=== PATIENT | male | born 1945 | race Caucasian/White ===

== ENCOUNTER 2017-01-15 12:24 | Outpatient (CLI) | payer MEDICARE, BC ==
[2017-01-15 13:57] LABS: Anion Gap 11 mmol/L (10-20); BUN (Urea Nitrogen) 16 mg/dL (8.4-25.7); Calc. Creatinine Clearance 0 mL/min (70-130); Calcium 9.9 mg/dL (7.8-10.44); Carbon Dioxide 30 mmol/L (23-31); Chloride 100 mmol/L (98-107); Estimated GFR-MDRD 52
--- NOTE | 2017-01-15 15:30 | EKG ---
Test Reason : Blood Pressure : / mmHG Vent. Rate : 065 BPM Atrial Rate : 065 BPM P-R Int : 196 ms QRS Dur : 086 ms QT Int : 408 ms P-R-T Axes : 012 -28 -12 degrees QTc Int : 424 ms Normal sinus rhythm Minimal voltage criteria for LVH, may be normal variant Nonspecific ST-T changes When compared with ECG of 28-NOV-2013 13:01, No significant change was found Confirmed by DR. Elaine CHILDERS ([id number]) on 01/15/2017 3:30:03 PM Referred By: SEBASTIÁN Confirmed By:DR. Elaine CHILDERS
== END 2017-01-15 12:25 | disposition home or self-care (01) ==
LOC: LABBT 12:24
PROVIDERS: ATTEND Surgery
DX: Z01.818 Encounter for other preprocedural examination (principal); N60.82 Other benign mammary dysplasias of left breast
CPT/HCPCS: 80048; 93005; 93010

== ENCOUNTER 2017-01-21 06:00 | Day surgery (SDC) | payer MEDICARE, BC ==
[2017-01-15 12:39] VITALS: BMI 26.9
[2017-01-21] MEDS ORDERED: CEFAZOLIN/Water 2 GM/20 ML SYRINGE ONE (06:23)
[2017-01-21] MEDS ORDERED: Fentanyl 100 MCG/2 ML VIAL ONE (06:35)
[2017-01-21] MEDS ORDERED: Bupivacaine PF 0.5% 30 ML VIAL ONE (06:45)
[2017-01-21] MEDS ORDERED: Lidocaine 1% w/Epinephrine 1:200K 30 ML VIAL ONE (07:29)
[2017-01-21] MEDS ORDERED: Lidocaine 1% PF 5 ML VIAL ONE (07:35)
[2017-01-21] MEDS ORDERED: Glycopyrrolate 0.2 MG/ML 5 ML SYRINGE ONE (07:35)
[2017-01-21] MEDS ORDERED: Dexamethasone 20 MG/5 ML VIAL ONE (07:35)
[2017-01-21] MEDS ORDERED: diphenhydrAMINE 50 MG/ML VIAL ONE (07:35)
[2017-01-21] MEDS ORDERED: Ondansetron HCl/PF 4 MG/2 ML Vial ONE (07:35)
[2017-01-21] MEDS ORDERED: Ketorolac Tromethamine 30 MG/ML VIAL ONE (07:35)
[2017-01-21] MEDS ORDERED: Metoclopramide HCl 10 MG/2 ML VIAL ONE (07:35)
[2017-01-21] MEDS ORDERED: Propofol 200 MG/20 ML VIAL ONE (07:35)
--- NOTE | 2017-01-21 08:19 | OP ---
DATE OF PROCEDURE: 01/21/2017 PREOPERATIVE DIAGNOSIS: Skin cyst, posterior neck, 3 cm. POSTOPERATIVE DIAGNOSIS: Skin cyst, posterior neck, 3 cm. PROCEDURE: Excision skin cyst, posterior neck, 3 cm. SURGEON: Dr. Leonardo. ANESTHESIA: General. ESTIMATED BLOOD LOSS: Minimal. COMPLICATIONS: None. SPECIMEN: Skin cyst. TECHNIQUE: The patient was taken to the operating room and placed supine on table. After general a nesthetic was obtained, the patient was placed in prone position. His posterior neck and back and p osterior scalp were shaved, prepped, and draped in a sterile fashion. An elliptical incision was us ed to ellipse out the skin over the large cyst of the posterior center of neck. This is a 3 cm in d iameter incision. Cautery was taken down into the subcutaneous tissue and the cyst is removed all t he way down to the subcutaneous tissue. The cyst is sent to Pathology for final diagnosis. The wou nd is irrigated. Local anesthetic was applied. The wound was closed using 3-0 Vicryl, 4-0 Monocryl , and Dermabond. The patient was en route to recovery in stable condition. All instrument counts, needle counts, and lap counts were correct.
== END 2017-01-21 10:25 | disposition home or self-care (01) ==
LOC: SDC 06:00
PROVIDERS: ATTEND Surgery
PROC: 0HB4XZZ Excision of Neck Skin, External Approach (ICD-10-PCS; principal; 2017-01-21)
DX: L72.0 Epidermal cyst (principal); E78.5 Hyperlipidemia, unspecified; I10 Essential (primary) hypertension; F17.220 Nicotine dependence, chewing tobacco, uncomplicated; M19.90 Unspecified osteoarthritis, unspecified site; K21.9 Gastro-esophageal reflux disease without esophagitis; H91.93 Unspecified hearing loss, bilateral; Z79.899 Other long term (current) drug therapy; Z98.890 Other specified postprocedural states; Z82.49 Family history of ischemic heart disease and other diseases of the circulatory system
CPT/HCPCS: 88304; J1100; J1200; J1885; J2001; J2405; J2704; J2765; J3010; S0020

== ENCOUNTER 2019-03-28 14:02 | Outpatient (CLI) | payer MEDICARE, BC ==
[2019-03-28] MEDS ORDERED: Magnevist 469MG/ML 20 ML VIAL ONE (16:38)
--- NOTE | 2019-03-29 10:57 | MRI ---
MRI PELVIS (PROSTATE) WITH AND WITHOUT IV CONTRAST: HISTORY: Prostate cancer. TECHNIQUE: Multiplanar, multisequential MRI of the pelvis was performed with and without IV contrast using the p rostate protocol. Review was also performed on an independent 3D work station. FINDINGS: The prostate measures 4.9 x 4.9 x 4.4 cm with a volume of 55 mL. There is a focal area of high T1 signal at the anterior aspect of the left peripheral zone, consisten t with hemorrhage. No focal area of restricted diffusion is seen in the peripheral zone to suggest a malignant process. No lentiform area of abnormally decreased T2 signal is noted in the transitional zone to suggest a ma lignant process. No focal arterial enhancing mass is seen. The prostatic capsule is intact. The seminal vesicle is int act. No pelvic lymphadenopathy is seen. The pelvic sidewall is normal. No abnormal areas of signal re placement are seen on the T1 weighted sequences to suggest osseous metastatic disease. IMPRESSION: PI-RADS 2 - Low (clinically significant prostate cancer is unlikely to be present). This study was interpreted in consultation with Dr. Evan Mabry, who concurs. POS: BHARGAV
== END 2019-03-28 14:03 | disposition home or self-care (01) ==
LOC: TBSIIMAG 14:02
PROVIDERS: ATTEND Urology
DX: C61 Malignant neoplasm of prostate (principal)
CPT/HCPCS: 72197; 82565; A9579

== ENCOUNTER 2019-04-26 09:36 | Outpatient (CLI) | payer MEDICARE, BC ==
--- NOTE | 2019-04-26 10:43 | CT ---
CT Abdomen Pelvis W WO con HISTORY: Malignant neoplasm of prostate COMPARISON: None. FINDINGS: The lung bases are clear. No calcified gallstones are noted. There are calcified granulomas in the li diana and spleen. No hepatic mass or abnormal biliary ductal dilatation is identified. The pancreas and adrenal glands are normal. No calculus is seen in the kidneys, ureters or the urinary bladder. No hydroureteronephrosis is seen on either side. The prostate is enlarged. Postcontrast images demonstrate no evidence of enhancing renal mass. Few tiny low-density lesions are likely cysts. There is normal contrast excretion into th e ureters and urinary bladder. No free air, free fluid or lymphadenopathy seen in the abdomen or pelvis. There are vascular calcific ations without evidence of aneurysmal dilatation of the abdominal aorta. There is mild colonic diverticulosis. There are degenerative changes in the spine. 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 No sclerotic or osteoblastic lesions are seen. IMPRESSION: No evidence of metastatic disease.
[2019-04-26] MEDS ORDERED: Iopamidol-370 76% 500 ML 1 ML ONE (12:53)
== END 2019-04-26 09:37 | disposition home or self-care (01) ==
LOC: BICCT 09:36
PROVIDERS: ATTEND Urology
DX: C61 Malignant neoplasm of prostate (principal)
CPT/HCPCS: 74178; Q9967

== ENCOUNTER 2020-04-04 12:44 | Inpatient (IN) | payer MEDICARE, BC ==
[2020-04-04 13:21] LABS: #Lymphocytes 0.6 thou/uL (1.20-3.40); #Monocytes 0.6 thou/uL (0.11-0.59); #Neutrophils 11.1 thou/uL (1.40-6.50); %Basophils 0.2 % (0.0-1.0); %Eosinophils 0.2 % (0.0-10.0); %Lymphocytes 4.5 % (21.0-51.0); %Monocytes 4.7 % (0.0-10.0); %Neutrophils 90.4 % (42.0-75.0); Hemoglobin 15.8 g/dL (14.0-18.0); Mean Corpuscular HGB CONC 34.5 g/dL (32.0-36.0); Mean Corpuscular Hemoglobin 30.2 pg (27.0-31.0); Mean Corpuscular Volume 87.5 fL (78.0-98.0); Mean Platelet Volume 6.8 fL (7.4-10.4); Platelet Count 314 thou/uL (130-400); RBC Distribution Width 12.8 % (11.5-14.5); Red Blood Cell (RBC) Count 5.24 mill/uL (4.70-6.10); White Blood Cell (WBC) Count 12.2 thou/uL (4.8-10.8)
[2020-04-04 13:44] LABS: ALT (SGPT) 69 U/L (8-55); AST (SGOT) 60 U/L (5-34); Albumin 3.4 g/dL (3.4-4.8); Alkaline Phosphatase 127 U/L (40-110); Anion Gap 14 mmol/L (10-20); BUN (Urea Nitrogen) 30 mg/dL (8.4-25.7); Bilirubin, Total 0.6 mg/dL (0.2-1.2); Calc. Creatinine Clearance 0 mL/min (70-130); Calcium 8.5 mg/dL (7.8-10.44); Carbon Dioxide 30 mmol/L (23-31); Chloride 97 mmol/L (98-107); Globulin 3.5 g/dL (2.4-3.5); Glucose 122 mg/dL (83-110); Protein, Total 6.9 g/dL (5.8-8.1); Sodium 138 mmol/L (136-145)
[2020-04-04] MEDS ORDERED: Dexamethasone 4 mg/ml Vial ONE (13:55)
[2020-04-04] MEDS ORDERED: Iopamidol-370 76% 500 ML 1 ML ONE (14:23)
[2020-04-04] MEDS ORDERED: Potassium Chloride 20 MEQ TAB ONE (14:34)
[2020-04-04] MEDS ORDERED: Senokot S 8.6-50 MG TAB PO PRN (16:32)
[2020-04-04] MEDS ORDERED: Albuterol 200 PUFF (6.7GM INHALER) INH PRN (16:44)
[2020-04-04 19:35] VITALS: BMI 27.2
[2020-04-04] MEDS: Rosuvastatin 10 MG TAB PO SCH (21:51)
[2020-04-04] MEDS: Enoxaparin Sodium 40 MG/0.4 ML SYRINGE SC SCH (21:51)
[2020-04-05 06:11] LABS: #Lymphocytes 0.5 thou/uL (1.20-3.40); #Monocytes 0.4 thou/uL (0.11-0.59); #Neutrophils 9.4 thou/uL (1.40-6.50); %Eosinophils 0.1 % (0.0-10.0); %Lymphocytes 5.1 % (21.0-51.0); %Monocytes 3.7 % (0.0-10.0); %Neutrophils 91.2 % (42.0-75.0); Hemoglobin 14.8 g/dL (14.0-18.0); Mean Corpuscular HGB CONC 32.9 g/dL (32.0-36.0); Mean Corpuscular Hemoglobin 28.9 pg (27.0-31.0); Mean Corpuscular Volume 87.9 fL (78.0-98.0); Mean Platelet Volume 6.9 fL (7.4-10.4); Platelet Count 325 thou/uL (130-400); RBC Distribution Width 12.7 % (11.5-14.5); Red Blood Cell (RBC) Count 5.11 mill/uL (4.70-6.10); White Blood Cell (WBC) Count 10.3 thou/uL (4.8-10.8)
[2020-04-05 06:38] LABS: ALT (SGPT) 55 U/L (8-55); AST (SGOT) 44 U/L (5-34); Albumin 3.1 g/dL (3.4-4.8); Alkaline Phosphatase 116 U/L (40-110); Anion Gap 17 mmol/L (10-20); BUN (Urea Nitrogen) 27 mg/dL (8.4-25.7); Bilirubin, Total 0.7 mg/dL (0.2-1.2); Calc. Creatinine Clearance 94 mL/min (70-130); Calcium 8.2 mg/dL (7.8-10.44); Carbon Dioxide 28 mmol/L (23-31); Chloride 99 mmol/L (98-107); Globulin 3.5 g/dL (2.4-3.5); Glucose 104 mg/dL (83-110); Potassium 3.5 mmol/L (3.5-5.1); Protein, Total 6.6 g/dL (5.8-8.1); Sodium 140 mmol/L (136-145)
[2020-04-05] MEDS: Dexamethasone 4 MG TAB PO SCH (08:12)
[2020-04-05] MEDS: Enoxaparin Sodium 40 MG/0.4 ML SYRINGE SC SCH ×2 (08:13→23:14)
[2020-04-05] MEDS: Cholecalciferol 1,000 UNITS (25 MCG) TAB PO SCH (08:13)
[2020-04-05] MEDS: Ascorbic Acid 500 mg Chewable Tablet PO SCH (08:13)
[2020-04-05] MEDS: Zinc Sulfate 220 MG CAP PO SCH (08:13)
[2020-04-05] MEDS ORDERED: ENALAPRIL PO SCH (09:00)
[2020-04-05] MEDS ORDERED: HYDROCHLOROTHIAZIDE PO SCH (09:00)
[2020-04-05] MEDS ORDERED: [UNRECOGNIZED DRUG - OTHER] PO SCH (09:00)
[2020-04-05] MEDS: Nicotine 14 MG PATCH TD SCH (09:04)
[2020-04-05] MEDS: Hydrochlorothiazide 25 MG TAB PO SCH (09:04)
[2020-04-05] MEDS: Lisinopril 5 MG TAB PO SCH (09:04)
[2020-04-05] MEDS ORDERED: REMDESIVIR (EUA) 200 MG in Sodium Chloride 0.9% 250 ML 210 ML IV SCH (17:00)
[2020-04-05] MEDS: hydrALAZINE 20 MG/ML VIAL SLOW IVP PRN (18:11)
[2020-04-05] MEDS: Rosuvastatin 10 MG TAB PO SCH (23:14)
[2020-04-06 09:13] LABS: ALT (SGPT) 57 U/L (8-55); AST (SGOT) 53 U/L (5-34); Albumin 3.3 g/dL (3.4-4.8); Alkaline Phosphatase 144 U/L (40-110); Anion Gap 18 mmol/L (10-20); BUN (Urea Nitrogen) 25 mg/dL (8.4-25.7); Bilirubin, Direct 0.6 mg/dL (0.1-0.3); Calc. Creatinine Clearance 98 mL/min (70-130); Calcium 8.9 mg/dL (7.8-10.44); Carbon Dioxide 29 mmol/L (23-31); Chloride 98 mmol/L (98-107); Glucose 98 mg/dL (83-110); Potassium 3.8 mmol/L (3.5-5.1); Protein, Total 7.4 g/dL (5.8-8.1); Sodium 141 mmol/L (136-145)
[2020-04-06] MEDS: Fluticasone Propionate Nasal Spray 16 gm Bottle NASAL SCH (10:06)
[2020-04-06] MEDS: Enoxaparin Sodium 40 MG/0.4 ML SYRINGE SC SCH ×2 (10:07→21:34)
[2020-04-06] MEDS: Zinc Sulfate 220 MG CAP PO SCH (10:07)
[2020-04-06] MEDS: Hydrochlorothiazide 25 MG TAB PO SCH (10:07)
[2020-04-06] MEDS: Dexamethasone 4 MG TAB PO SCH (10:07)
[2020-04-06] MEDS: Lisinopril 5 MG TAB PO SCH (10:08)
[2020-04-06] MEDS: Cholecalciferol 1,000 UNITS (25 MCG) TAB PO SCH (10:08)
[2020-04-06] MEDS: Nicotine 14 MG PATCH TD SCH (10:08)
[2020-04-06] MEDS: Ascorbic Acid 500 mg Chewable Tablet PO SCH (10:08)
[2020-04-06] MEDS ORDERED: Sodium Chloride 0.65% Nasal 44 ML BOT EA NARE PRN (10:59)
[2020-04-06] MEDS: REMDESIVIR (EUA) 100 MG in Sodium Chloride 0.9% 250 ML 230 ML IV SCH (16:42)
[2020-04-06] MEDS: Rosuvastatin 10 MG TAB PO SCH (21:34)
[2020-04-06] MEDS: Melatonin 3 MG TAB PO PRN (21:34)
[2020-04-07] MEDS: hydrALAZINE 20 MG/ML VIAL SLOW IVP PRN (06:52)
[2020-04-07] MEDS: Hydrochlorothiazide 25 MG TAB PO SCH (07:59)
[2020-04-07] MEDS: Dexamethasone 4 MG TAB PO SCH (07:59)
[2020-04-07] MEDS: Ascorbic Acid 500 mg Chewable Tablet PO SCH (08:00)
[2020-04-07] MEDS: Cholecalciferol 1,000 UNITS (25 MCG) TAB PO SCH (08:00)
[2020-04-07] MEDS: Lisinopril 5 MG TAB PO SCH (08:00)
[2020-04-07] MEDS: Zinc Sulfate 220 MG CAP PO SCH (08:00)
[2020-04-07] MEDS: Nicotine 14 MG PATCH TD SCH (08:00)
[2020-04-07] MEDS: Fluticasone Propionate Nasal Spray 16 gm Bottle NASAL SCH (08:48)
[2020-04-07] MEDS: Enoxaparin Sodium 40 MG/0.4 ML SYRINGE SC SCH ×2 (08:48→20:24)
[2020-04-07] MEDS: REMDESIVIR (EUA) 100 MG in Sodium Chloride 0.9% 250 ML 230 ML IV SCH (18:01)
[2020-04-07 19:46] LABS: Troponin I 0.015 ng/mL (< 0.028)
[2020-04-07] MEDS: Melatonin 3 MG TAB PO PRN (20:24)
[2020-04-07] MEDS: Acetaminophen 325 MG TAB PO PRN (20:24)
[2020-04-07] MEDS: Rosuvastatin 10 MG TAB PO SCH (20:24)
[2020-04-07] MEDS: Cepastat Lozenges 1 LOZ PO PRN (23:42)
[2020-04-08] MEDS: Cepastat Lozenges 1 LOZ PO PRN ×2 (05:15→20:32)
[2020-04-08 06:58] LABS: ALT (SGPT) 51 U/L (8-55); AST (SGOT) 33 U/L (5-34); Albumin 3.1 g/dL (3.4-4.8); Alkaline Phosphatase 134 U/L (40-110); Anion Gap 17 mmol/L (10-20); BUN (Urea Nitrogen) 33 mg/dL (8.4-25.7); Bilirubin, Direct 0.6 mg/dL (0.1-0.3); CRP (Inflammatory) 12.62 mg/dL (= or < 0.5); Calc. Creatinine Clearance 97 mL/min (70-130); Calcium 9.1 mg/dL (7.8-10.44); Carbon Dioxide 28 mmol/L (23-31); Chloride 99 mmol/L (98-107); Glucose 92 mg/dL (83-110); Potassium 4.2 mmol/L (3.5-5.1); Protein, Total 6.8 g/dL (5.8-8.1); Sodium 140 mmol/L (136-145)
[2020-04-08] MEDS: Hydrochlorothiazide 25 MG TAB PO SCH (07:59)
[2020-04-08] MEDS: Enoxaparin Sodium 40 MG/0.4 ML SYRINGE SC SCH ×2 (07:59→20:34)
[2020-04-08] MEDS: Zinc Sulfate 220 MG CAP PO SCH (08:00)
[2020-04-08] MEDS: Ascorbic Acid 500 mg Chewable Tablet PO SCH (08:00)
[2020-04-08] MEDS: Dexamethasone 4 MG TAB PO SCH (08:00)
[2020-04-08] MEDS: Cholecalciferol 1,000 UNITS (25 MCG) TAB PO SCH (08:00)
[2020-04-08] MEDS: Lisinopril 5 MG TAB PO SCH (08:00)
[2020-04-08] MEDS: Nicotine 14 MG PATCH TD SCH (08:01)
[2020-04-08] MEDS: Fluticasone Propionate Nasal Spray 16 gm Bottle NASAL SCH (08:01)
[2020-04-08] MEDS: REMDESIVIR (EUA) 100 MG in Sodium Chloride 0.9% 250 ML 230 ML IV SCH (16:52)
[2020-04-08] MEDS: Melatonin 3 MG TAB PO PRN (20:32)
[2020-04-08] MEDS: Rosuvastatin 10 MG TAB PO SCH (20:32)
[2020-04-08] MEDS: Acetaminophen 325 MG TAB PO PRN (20:32)
[2020-04-09] MEDS: Cholecalciferol 1,000 UNITS (25 MCG) TAB PO SCH (07:43)
[2020-04-09] MEDS: Dexamethasone 4 MG TAB PO SCH (07:43)
[2020-04-09] MEDS: Enoxaparin Sodium 40 MG/0.4 ML SYRINGE SC SCH ×2 (07:43→20:35)
[2020-04-09] MEDS: Hydrochlorothiazide 25 MG TAB PO SCH (07:43)
[2020-04-09] MEDS: Lisinopril 5 MG TAB PO SCH (07:43)
[2020-04-09] MEDS: Ascorbic Acid 500 mg Chewable Tablet PO SCH (07:43)
[2020-04-09] MEDS: Zinc Sulfate 220 MG CAP PO SCH (07:43)
[2020-04-09] MEDS: Fluticasone Propionate Nasal Spray 16 gm Bottle NASAL SCH (07:47)
[2020-04-09] MEDS: Nicotine 14 MG PATCH TD SCH (07:47)
[2020-04-09] MEDS: REMDESIVIR (EUA) 100 MG in Sodium Chloride 0.9% 250 ML 230 ML IV SCH (17:29)
[2020-04-09] MEDS: Acetaminophen 325 MG TAB PO PRN (17:29)
[2020-04-09] MEDS: Rosuvastatin 10 MG TAB PO SCH (20:34)
[2020-04-09] MEDS: Melatonin 3 MG TAB PO PRN (20:34)
[2020-04-10 07:06] LABS: ALT (SGPT) 38 U/L (8-55); AST (SGOT) 25 U/L (5-34); Albumin 2.7 g/dL (3.4-4.8); Alkaline Phosphatase 106 U/L (40-110); Anion Gap 16 mmol/L (10-20); BUN (Urea Nitrogen) 35 mg/dL (8.4-25.7); Bilirubin, Direct 0.3 mg/dL (0.1-0.3); Bilirubin, Total 0.7 mg/dL (0.2-1.2); CRP (Inflammatory) 8.23 mg/dL (= or < 0.5); Calc. Creatinine Clearance 107 mL/min (70-130); Calcium 8.5 mg/dL (7.8-10.44); Carbon Dioxide 25 mmol/L (23-31); Chloride 102 mmol/L (98-107); Glucose 84 mg/dL (83-110); Protein, Total 6.3 g/dL (5.8-8.1); Sodium 139 mmol/L (136-145)
[2020-04-10] MEDS: Enoxaparin Sodium 40 MG/0.4 ML SYRINGE SC SCH ×2 (08:04→20:14)
[2020-04-10] MEDS: Hydrochlorothiazide 25 MG TAB PO SCH (08:05)
[2020-04-10] MEDS: Lisinopril 5 MG TAB PO SCH (08:07)
[2020-04-10] MEDS: Cholecalciferol 1,000 UNITS (25 MCG) TAB PO SCH (08:07)
[2020-04-10] MEDS: Zinc Sulfate 220 MG CAP PO SCH (08:07)
[2020-04-10] MEDS: Ascorbic Acid 500 mg Chewable Tablet PO SCH (08:07)
[2020-04-10] MEDS: Dexamethasone 4 MG TAB PO SCH (08:08)
[2020-04-10] MEDS: Nicotine 14 MG PATCH TD SCH (08:09)
[2020-04-10] MEDS: Fluticasone Propionate Nasal Spray 16 gm Bottle NASAL SCH (08:26)
[2020-04-10] MEDS: Rosuvastatin 10 MG TAB PO SCH (20:14)
[2020-04-10] MEDS: Melatonin 3 MG TAB PO PRN (20:14)
[2020-04-11] MEDS: Cholecalciferol 1,000 UNITS (25 MCG) TAB PO SCH (09:34)
[2020-04-11] MEDS: Enoxaparin Sodium 40 MG/0.4 ML SYRINGE SC SCH ×2 (09:34→21:00)
[2020-04-11] MEDS: Zinc Sulfate 220 MG CAP PO SCH (09:34)
[2020-04-11] MEDS: Hydrochlorothiazide 25 MG TAB PO SCH (09:34)
[2020-04-11] MEDS: Ascorbic Acid 500 mg Chewable Tablet PO SCH (09:34)
[2020-04-11] MEDS: Lisinopril 5 MG TAB PO SCH (09:35)
[2020-04-11] MEDS: Dexamethasone 4 MG TAB PO SCH (09:35)
[2020-04-11] MEDS: Fluticasone Propionate Nasal Spray 16 gm Bottle NASAL SCH (09:36)
[2020-04-11] MEDS: Nicotine 14 MG PATCH TD SCH (09:36)
[2020-04-11] MEDS: Rosuvastatin 10 MG TAB PO SCH (21:00)
[2020-04-12 06:43] LABS: Mean Corpuscular HGB CONC 33.4 g/dL (32.0-36.0); Mean Corpuscular Hemoglobin 29.7 pg (27.0-31.0); Mean Platelet Volume 7.1 fL (7.4-10.4); Platelet Count 572 thou/uL (130-400); RBC Distribution Width 12.5 % (11.5-14.5); Red Blood Cell (RBC) Count 5.37 mill/uL (4.70-6.10); White Blood Cell (WBC) Count 12.5 thou/uL (4.8-10.8)
[2020-04-12 06:55] LABS: ALT (SGPT) 43 U/L (8-55); AST (SGOT) 24 U/L (5-34); Albumin 2.9 g/dL (3.4-4.8); Alkaline Phosphatase 108 U/L (40-110); Anion Gap 15 mmol/L (10-20); BUN (Urea Nitrogen) 28 mg/dL (8.4-25.7); Bilirubin, Direct 0.4 mg/dL (0.1-0.3); Bilirubin, Total 0.8 mg/dL (0.2-1.2); Calc. Creatinine Clearance 99 mL/min (70-130); Calcium 9.2 mg/dL (7.8-10.44); Carbon Dioxide 25 mmol/L (23-31); Chloride 99 mmol/L (98-107); Glucose 85 mg/dL (83-110); Potassium 4.1 mmol/L (3.5-5.1); Protein, Total 6.7 g/dL (5.8-8.1); Sodium 135 mmol/L (136-145)
[2020-04-12] MEDS: Enoxaparin Sodium 40 MG/0.4 ML SYRINGE SC SCH ×2 (07:47→21:09)
[2020-04-12] MEDS: Fluticasone Propionate Nasal Spray 16 gm Bottle NASAL SCH (07:48)
[2020-04-12] MEDS: Dexamethasone 4 MG TAB PO SCH (07:48)
[2020-04-12] MEDS: Ascorbic Acid 500 mg Chewable Tablet PO SCH (07:48)
[2020-04-12] MEDS: Cholecalciferol 1,000 UNITS (25 MCG) TAB PO SCH (07:48)
[2020-04-12] MEDS: Zinc Sulfate 220 MG CAP PO SCH (07:48)
[2020-04-12] MEDS: Nicotine 14 MG PATCH TD SCH (07:49)
[2020-04-12] MEDS: Hydrochlorothiazide 25 MG TAB PO SCH (07:50)
[2020-04-12] MEDS: Lisinopril 5 MG TAB PO SCH (07:52)
[2020-04-12 08:17] LABS: Band 2 % (5-11); Lymphocytes 11 % (21-51); MDiff Complete? YES; Metamyelocyte 3 % (0-0); Monocytes 8 % (0-10); Myelocyte 1 % (0-0); Neutrophil 74 % (42-75); Platelet Morphology Comment Appears Increased; RBC Morphology Normal; Reactive Lymphocytes 1 % (0-10)
[2020-04-12] MEDS: Rosuvastatin 10 MG TAB PO SCH (21:09)
[2020-04-13 00:11] VITALS: TEMP 97.8
[2020-04-13] MEDS: Dexamethasone 4 MG TAB PO SCH (08:46)
[2020-04-13] MEDS: Zinc Sulfate 220 MG CAP PO SCH (08:46)
[2020-04-13] MEDS: Ascorbic Acid 500 mg Chewable Tablet PO SCH (08:46)
[2020-04-13] MEDS: Enoxaparin Sodium 40 MG/0.4 ML SYRINGE SC SCH (08:46)
[2020-04-13] MEDS: Hydrochlorothiazide 25 MG TAB PO SCH (08:47)
[2020-04-13] MEDS: Cholecalciferol 1,000 UNITS (25 MCG) TAB PO SCH (08:47)
[2020-04-13] MEDS: Lisinopril 5 MG TAB PO SCH (08:47)
[2020-04-13] MEDS: Nicotine 14 MG PATCH TD SCH (08:48)
[2020-04-13] MEDS: Fluticasone Propionate Nasal Spray 16 gm Bottle NASAL SCH (08:48)
[2020-04-13 10:02] VITALS: BP 120/69
== END 2020-04-13 18:26 | disposition home or self-care (01) | DRG 177 ==
LOC: ERS 12:44 → T4-A 16:07
PROVIDERS: ADMIT Internal Medicine; ATTEND Family Medicine
PROC: XW033E5 Introduction of Remdesivir Anti-infective into Peripheral Vein, Percutaneous Approach, New Technology Group 5 (ICD-10-PCS; principal; 2020-04-05)
DX: U07.1 COVID-19 (principal); J12.82 Pneumonia due to coronavirus disease 2019; J96.01 Acute respiratory failure with hypoxia; I10 Essential (primary) hypertension; E78.5 Hyperlipidemia, unspecified; F17.200 Nicotine dependence, unspecified, uncomplicated; E87.6 Hypokalemia; R04.0 Epistaxis; Z85.46 Personal history of malignant neoplasm of prostate; Z79.899 Other long term (current) drug therapy
CPT/HCPCS: 36415; 71045; 71275; 80048; 80053; 80076; 82728; 83880; 84484; 85025; 85379; 86140; 86141; 93005; 93010; 94760; 96374; J0360; J1100; J1650; J7050; J8540; Q9967

== ENCOUNTER 2021-10-28 09:38 | Outpatient (CLI) | payer MEDICARE, BC ==
[~2021-10-28 09:38] MED LIST: Magnevist 469MG/ML 20 ML VIAL ONE
== END 2021-10-28 09:39 | disposition home or self-care (01) ==
LOC: TBSIIMAG 09:38
PROVIDERS: ATTEND Urology
DX: C61 Malignant neoplasm of prostate (principal)
CPT/HCPCS: 72197; 82565; A9579